=== PATIENT | female | born 1955 | race Caucasian/White ===

== ENCOUNTER → 2016-07-27 | Outpatient (CLI) | payer OTHER | LOC: FCPNEURO 23:12 | PROVIDERS: ATTEND Student in an Organized Health Care Education/Training Program | DX: G47.33 Obstructive sleep apnea (adult) (pediatric) (principal) ==

== ENCOUNTER → 2017-03-24 | Outpatient (CLI) | payer OTHER | LOC: CIMAGING 15:53 | PROVIDERS: ATTEND Family Medicine | DX: Z13.83 Encounter for screening for respiratory disorder NEC (principal) | CPT/HCPCS: 71020-PO ==

== ENCOUNTER 2017-04-01 09:52 | Inpatient (IN) | payer OTHER ==
[~2017-04-01 09:52] MED LIST: ROPIVACAINE 0.2% 80 MG, EPINEPHrine 0.2 MG, KETOROLAC TROMETHAMINE 30 MG in SYRINGE 0 ML IU ONE; TRANEXAMIC ACID 3,000 MG in NS 50 ML IRR ONE; TRANEXAMIC ACID 3,000 MG/50 ML BAG IRR ONE; VANCOMYCIN 1 GM VIAL ONE
[2017-04-01] MEDS ORDERED: ACETAMINOPHEN 325 MG TAB PO ONE (10:13)
[2017-04-01] MEDS ORDERED: ceFAZolin 2 GM/SWFI 2 GM/20 ML SYR IVP ONE (10:13)
[2017-04-01] MEDS ORDERED: DEXAMETHASONE 4 MG/ML VIAL IVP ONE (10:13)
[2017-04-01] MEDS ORDERED: FAMOTIDINE 20 MG TAB PO ONE (10:13)
[2017-04-01] MEDS ORDERED: LR 1,000 ML IV ONE (10:20)
[2017-04-01] MEDS ORDERED: LIDOCAINE 1% 2 ML INJ ID PRN (10:20)
--- NOTE | 2017-04-01 11:08 | PDHPUP ---
History & Physical Update H&P update statement: This history and physical update is based on an assessment of the patient which was completed after admission or registration (within 24 hours), but prior to the surgery/procedure. H&P update: H&P reviewed & patient examined, no change in patient's condition since H&P completed
[2017-04-01] MEDS ORDERED: MIDAZOLAM 2 MG/2 ML VIAL IVP ONE (11:33)
--- NOTE | 2017-04-01 11:37 | PDANEPAE ---
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 pcp monitors bp - Pulmonary History Hx COPD: No Hx Asthma/Reactive Airway Disease: No Hx Recent Upper Respiratory Infection: No Hx Oxygen in Use at Home: No Hx Sleep Apnea: No Sleep Apnea Screening Result - Last Documented: Positive Pulmonary History Comment: normal o2 sats range 93-94%. scottie positive- instructed pt to bring cpap to hospital - Neurologic History Hx Cerebrovascular Accident: No Hx Seizures: No Hx Dementia: No - Endocrine History Hx Diabetes: No Endocrine History Comment: hypothyroidism - Renal History Hx Renal Disorders: No - Liver History Hx Hepatic Disorders: No - Neurological & Psychiatric Hx Hx Neurological and Psychiatric Disorders: No Neurological / Psychiatric History Comment: hx of depression. anxiety - Cancer History Hx Cancer: No - Congenital Disorder History Hx Congenital Disorders: No - GI History Hx Gastrointestinal Disorders: No Gastrointestinal History Comment: hx of reflux - Other Health History Other Health History: NONE - Chronic Pain History Chronic Pain: Yes (left knee and right hip) - Surgical History Prior Surgeries: KNEE MENISCUS. FIBRODS REMOVED TONSILS ANE Review of Systems Review of systems is: negative Review of Systems: - Exercise capacity METS (RN): 3 METS ANE Patient History - Allergies Allergies/Adverse Reactions: Iodinated Contrast- Oral and IV Dye Allergy (Verified 04/01/17 10:22) iv tracer- caused flushing nickel Allergy (Verified 04/01/17 10:22) contact dermatitis - Home Medications Home Medications: Levothyroxine [Synthroid] 175 mcg PO DAILY 06/09/11 [Last Taken 04/01/17 05:00] Aspirin EC [Aspirin EC 81 mg (*)] 81 mg PO DAILY 03/06/17 [Last Taken 03/24/17] Herbals/Supplements -Info Only 1 ea PO DAILY 03/06/17 [Last Taken 03/18/17] Lisinopril [Zestril 10 mg (*)] 10 mg PO DAILY 03/06/17 [Last Taken 03/31/17 08: 00] Rosuvastatin Calcium [Crestor 5mg] 5 mg PO DAILY 03/06/17 [Last Taken 03/31/17 21:00] - NPO status NPO Since - Liquids (Date): 04/01/17 NPO Since - Liquids (Time): 09:00 NPO Since - Solids (Date): 03/31/17 NPO Since - Solids (Time): 18:30 - Smoking Hx Smoking Status: Former smoker - Alcohol Use Alcohol Use: Occasionally - Family Anes Hx Family Hx Anesthesia Complications: NONE ANE Labs/Vital Signs - Vital Signs Blood Pressure: 127/75 Heart Rate: 76 Respiratory Rate: 16 O2 Sat (%): 91 Height: 162.56 cm Weight: 111.13 kg ANE Physical Exam - Airway Neck exam: FROM Mallampati Score: Class 2 Mouth exam: normal dental/mouth exam - Pulmonary Pulmonary: no respiratory distress - Cardiovascular Cardiovascular: regular rate and rhythym - ASA Status ASA Status: II ANE Anesthesia Plan Anesthesia Plan: spinal
[2017-04-01] MEDS ORDERED: PROPOFOL/EMULSION 500 MG/50 ML BOTTLE IV ONE ×2 (12:09→12:46)
[2017-04-01] MEDS ORDERED: fentaNYL 100 MCG/2 ML INJ ONE ×2 (12:15→13:35)
[2017-04-01] MEDS ORDERED: PROMETHAZINE HCL 25 MG SUPPR PR PRN (13:38)
[2017-04-01] MEDS ORDERED: CYCLOBENZAPRINE 10 MG TAB PO PRN (13:38)
[2017-04-01] MEDS ORDERED: MAGNESIUM HYDROXIDE 30 ML UDCUP PO PRN (13:38)
[2017-04-01] MEDS ORDERED: DIPHENOXYLATE/ATROPINE LOMOTIL 1 TAB PO PRN (13:38)
[2017-04-01] MEDS ORDERED: PROMETHAZINE HCL 25 MG/ML INJ IVP PRN ×2 (13:38→13:54)
[2017-04-01] MEDS ORDERED: BISACODYL 10 MG SUPP PR PRN (13:38)
[2017-04-01] MEDS ORDERED: METOCLOPRAMIDE 10 MG/2 ML VIAL IVP PRN (13:38)
[2017-04-01] MEDS ORDERED: POLYETHYLENE GLYCOL 3350 17 GM PKT PO PRN (13:38)
[2017-04-01] MEDS ORDERED: LACTULOSE 20 GM/30 ML UDCUP PO PRN (13:38)
[2017-04-01] MEDS ORDERED: TEMAZEPAM 15 MG CAP PO PRN (13:38)
[2017-04-01] MEDS ORDERED: ONDANSETRON 4 MG/2 ML VIAL IVP PRN ×2 (13:38→13:54)
[2017-04-01] MEDS ORDERED: diphenhydrAMINE 25 MG CAP PO PRN (13:38)
[2017-04-01] MEDS ORDERED: ONDANSETRON DISINTEGRATING 4 MG TAB PO PRN (13:38)
[2017-04-01] MEDS ORDERED: fentaNYL 100 MCG/2 ML INJ IVP PRN (13:54)
[2017-04-01] MEDS ORDERED: NALOXONE HCL 0.4 MG/ML INJ IVP PRN (13:54)
--- NOTE | 2017-04-01 13:55 | POSTANESTH ---
Post Anesthetic Evaluation Cardiovascular Status: Normal, Stable Respiratory Status: Normal, Stable Level of Consciousness/Mental Status: Can Participate in Eval, Alert and Oriented Pain Control: Adequate, Prn Tx Ordered Nausea/Vomiting Control: Adequate, Prn Tx Ordered Complications Possibly Related to Anesthesia: None Noted
[2017-04-01] MEDS ORDERED: LR 1,000 ML IV SCH (14:00)
[2017-04-01] MEDS ORDERED: WARFARIN SODIUM 5 MG TAB PO SCH (16:00)
--- NOTE | 2017-04-01 18:03 | POSTOPPROG ---
Post Op Note Date of Operation: 04/01/17 Surgeon: Marvin Hale Afternoon Babysitter: Cori Hale PAc Anesthesiologist: Warm Anesthesia: Spinal Pre-op Diagnosis: L knee DJD Post-op Diagnosis: same Indication: Pain Procedure: L TKA Findings: DJD knee Inf/Abcess present in the surg proc area at time of surgery?: No EBL: 50-100
[2017-04-01] MEDS: ACETAMINOPHEN 325 MG TAB PO SCH ×2 (18:23→23:41)
[2017-04-01] MEDS: ceFAZolin 2 GM/SWFI 2 GM/20 ML SYR IVP SCH (18:23)
[2017-04-01] MEDS ORDERED: ROSUVASTATIN CALCIUM 10 MG TAB PO SCH (21:00)
[2017-04-01] MEDS: SENNOSIDES/DOCUSATE SODIUM TAB PO SCH (21:09)
[2017-04-01] MEDS: FAMOTIDINE 20 MG TAB PO SCH (21:10)
[2017-04-01] MEDS: oxyCODONE IR 5 MG TAB PO PRN ×2 (21:10→22:30)
[2017-04-01 23:48] VITALS: RESP 16
[2017-04-02] MEDS: ceFAZolin 2 GM/SWFI 2 GM/20 ML SYR IVP SCH (04:28)
[2017-04-02] MEDS: oxyCODONE IR 5 MG TAB PO PRN ×3 (05:31→12:00)
[2017-04-02] MEDS: ACETAMINOPHEN 325 MG TAB PO SCH ×2 (05:32→12:00)
--- NOTE | 2017-04-02 05:48 | GOP ---
[f rep st] OPERATIVE REPORT DATE OF OPERATION: 04/01/2017 SURGEON: Evelin Hale MD PRODUCTION SOLDERER: OK Mendoza. ANESTHESIA: Spinal. PREOPERATIVE DIAGNOSIS: Left knee osteoarthritis. POSTOPERATIVE DIAGNOSIS: Left knee osteoarthritis. PROCEDURE PERFORMED: Total knee arthroplasty. FINDINGS: INDICATIONS: This is a 61-year-old female with severe and progressive pain and deformity of the left knee unresponsive to conservative care. The risks and benefits of surgical intervention were explained in detail. DESCRIPTION OF PROCEDURE: The patient was brought to the operative room and placed on the table in the supine position. Spinal anesthesia was induced without difficulty. A pneumatic tourniquet was applied about the left proximal thigh, and the leg was prepped and draped in a sterile fashion. The leg jones was applied. After exsanguination by elevation the tourniquet was inflated to 300 mm of mercury. Incision was made anterior medial from the tibial tuberosity to a point 2 cm proximal to the superior pole of the patella. Medial parapatellar arthrotomy was carried out from the superior pole of the patella and posteriorly in line with the fibers of the Type II VMO. The medial collateral ligament was elevated and the infrapatellar fat pad was resected. The patella was everted and the articular surface was excised. A 35 mm patellar button was placed. The distal femoral guide hole was drilled and the 6 degree alignment manisha was placed. A 10 mm distal femoral cut was made without difficulty. Attention was turned to the tibia and a standard 9 mm cut based on the lateral condyle was performed. The tibial articular surface was excised without difficulty. Attention was turned back to the femur and a size 5 femoral cutting block was positioned. Anterior, posterior, and chamfer cuts were made, followed by the intercondylar box cut. The knee was extended and the remnants of the medial and lateral meniscus were excised. The posterior capsule was injected with ropivacaine, epinephrine and Toradol. A size 5 Journey tibial tray was positioned. Trial reduction was then carried out. There was excellent range of motion, alignment, and stability using the 10 mm polyethylene. All trials were then removed. The joint was thoroughly irrigated and carefully dried. Two packages of cement and 2 grams of vancomycin were mixed in the vacuum mixer and placed on the fixation surfaces of all surfaces of the components. The components were implanted and all excess cement was thoroughly removed. The permanent 10 mm polyethylene was placed without difficulty. The tourniquet was deflated and all bleeders were coagulated. The wound was thoroughly irrigated and closed using interrupted sutures of 2-0 Vicryl for the joint capsule. The subcu was closed with 3-0 Vicryl and the skin with 4-0 Monocryl. Dermabond and Steri-Strips were applied followed by a compressive dressing. The patient was then moved from the operating room to the recovery room in good condition, having tolerated the procedure well. /[id number]/MODL MTDD
[2017-04-02 06:46] LABS: HEMATOCRIT 40.9 % (38.0-47.0); HEMOGLOBIN 13.6 g/dL (12.6-16.3)
[2017-04-02 06:58] LABS: INR 1.13 (0.83-1.16); PROTIME(PATIENT) 14.7 SEC (12.0-15.0)
[2017-04-02 07:52] VITALS: BP 122/66; PULSE 73; TEMP 97.8; O2SAT 95
[2017-04-02] MEDS ORDERED: NON-FORMULARY NEW DRUG (Rosuvastatin Calcium [Crestor 5mg] 5 MG) PO SCH (09:00)
[2017-04-02] MEDS ORDERED: LISINOPRIL 10 MG TAB PO SCH (09:00)
[2017-04-02] MEDS ORDERED: ENOXAPARIN 40 MG/0.4 ML SYR SC SCH (09:00)
[2017-04-02] MEDS ORDERED: LEVOTHYROXINE 175 MCG TAB PO SCH (09:00)
[2017-04-02] MEDS: SENNOSIDES/DOCUSATE SODIUM TAB PO SCH (09:17)
[2017-04-02] MEDS: FAMOTIDINE 20 MG TAB PO SCH (09:17)
--- NOTE | 2017-04-02 10:46 | SOAPPROG ---
SOAP Progress Note Assessment/Plan: Assessment: Patient is doing well POD 1 s/p L TKA Pain management: pain is well controlled on oral pain meds. VTE ppx: recommend coumadin and lovenox, INR 1.13, cont DEV and SCDs D/c planning: d/c to home today pending release from PT Plan: 04/02/17 10:45 04/02/17 10:46 Subjective: Lianet is doing well today, denies SOB, chest pain and N/V. Objective: Vital Signs Temp Pulse Resp BP Pulse Ox 36.6 C 73 16 122/66 H 95 04/02/17 07:52 04/02/17 07:52 04/02/17 07:52 04/02/17 09:16 04/02/17 07:52 Laboratory Results 04/02/17 05:50 04/01/17 04/02/17 04/03/17 05:59 05:59 05:59 Intake Total 2490 300 Output Total 1951 400 Balance 539 -100 PT 14.7 SEC (12.0-15.0) 04/02/17 05:50 INR 1.13 (0.83-1.16) 04/02/17 05:50 LLE: incision dressing is clean and dry, NVI, +pf/df ICD10 Worksheet Patient Problems: Problems Problem Status Onset Primary localized osteoarthritis of left knee Acute
--- NOTE | 2017-04-02 16:21 | ASDISCHSUM ---
Discharge Information Plan Status:Home with No Needs Medically Cleared to Leave: Discharge Date:04/02/2017 02:52 PM CM D/C Disposition:Home, Routine, Self-Care ADT D/C Disposition:Home, Routine, Self-Care Projected Discharge Date:04/02/2017 02:52 PM Transportation at D/C: Discharge Delay Reason: Follow-Up Date:04/02/2017 02:52 PM Discharge Slot: Final Diagnosis: Placement Information Patient Contact Information Contact Name:CECIL Relationship: Address:[address] City:[place] Alternate Phone: [facility]/Zip Code:[place] [address] Email: Financial Information Financial Class:HMO and PPO Plans Primary Plan Desc:H[employer] [place] [employer] Primary Plan Number:[id number] Secondary Plan Desc: Secondary Plan Number: Assessment Information CM Public Policy Coordinator Assessment CJR Did you go to joint Answers: Yes class? CM Note CM Note Notes: Lianet is planning to discharge home with the support of her and friends. She seen the online video, but I provided her with the information for attending the Joint Class on March 25. Lianet did attend this meeting and she let me know after that it provided her with good information. Lianet has set up outpatient therapy for post-surgery rehabilitation. Date Signed: 03/27/2017 09:12 AM Electronically Signed By:Danette Valverde Intervention Information
--- NOTE | 2017-04-03 03:09 | GDS ---
[f rep st] DISCHARGE SUMMARY ADMISSION DIAGNOSIS: Left knee osteoarthritis. DISCHARGE DIAGNOSIS: Left knee osteoarthritis. PROCEDURE: Left total knee arthroplasty. VTE PROPHYLAXIS: Coumadin and Lovenox recommended. BRIEF DESCRIPTION OF HOSPITAL STAY: Patient was admitted for an elective joint arthroplasty. The pa tient tolerated the procedure well and has passed physical therapy. The patient was given appropriat e antibiotic prophylaxis and venous thromboembolism prophylaxis. The patient's pain was well control led on oral pain medication, patient was holding down food, and had urinated. Decision was made to d ischarge the patient. The patient was given post-operative prescriptions pre-operatively. PLAN: Please follow up as scheduled with Dr. Hale's office April 23 at 10:30 a.m. /[id number]/MODL
== END 2017-04-02 14:52 | disposition home or self-care (01) | DRG 470 ==
LOC: F3N 09:52
PROVIDERS: ADMIT Orthopaedic Surgery; ATTEND Orthopaedic Surgery
PROC: 0SRD0J9 Replacement of Left Knee Joint with Synthetic Substitute, Cemented, Open Approach (ICD-10-PCS; principal; 2017-04-01 12:15)
DX: M17.12 Unilateral primary osteoarthritis, left knee (principal); I25.10 Atherosclerotic heart disease of native coronary artery without angina pectoris; E03.9 Hypothyroidism, unspecified; E78.00 Pure hypercholesterolemia, unspecified
CPT/HCPCS: 97116-GP; 97161-GP; 97165-GO; 97535-GO; C1713; J0171; J0690; J1100; J1650; J1885; J2250; J2704; J2795; J3010; J3370

== ENCOUNTER → 2017-12-30 | Outpatient (CLI) | payer OTHER | LOC: CIMAGING 15:50 | PROVIDERS: ATTEND Family Medicine | DX: M79.604 Pain in right leg (principal) | CPT/HCPCS: 93971-PO ==

== ENCOUNTER → 2018-01-05 | Outpatient (CLI) | payer OTHER | LOC: FIMAGING 18:36 | PROVIDERS: ATTEND Orthopaedic Surgery | DX: S83.271A Complex tear of lateral meniscus, current injury, right knee, initial encounter (principal); S83.241A Other tear of medial meniscus, current injury, right knee, initial encounter; M24.10 Other articular cartilage disorders, unspecified site; M76.31 Iliotibial band syndrome, right leg; M25.461 Effusion, right knee ==

== ENCOUNTER 2018-04-02 11:50 | Observation (INO) | payer OTHER ==
[~2018-04-02 11:50] MED LIST changes: +TRANEXAMIC ACID 3,000 MG in NS (SYRINGE) 50 ML IRR ONE; -TRANEXAMIC ACID 3,000 MG in NS 50 ML IRR ONE; -VANCOMYCIN 1 GM VIAL ONE
[2018-04-02] MEDS ORDERED: ROPIVACAINE HCL 150 MG/30 ML INJ ONE (11:58)
[2018-04-02] MEDS ORDERED: BUPIVACAINE/DEXTROSE 7.5MG/ML 2 ML SPINAL AMP SP ONE (11:58)
[2018-04-02] MEDS ORDERED: PROPOFOL 200 MG/20 ML VIAL ONE (11:58)
[2018-04-02] MEDS ORDERED: LIDOCAINE 2% 5 ML SDV ONE (11:58)
[2018-04-02] MEDS ORDERED: PROPOFOL/EMULSION 500 MG/50 ML BOTTLE IV ONE ×3 (11:58→15:49)
[2018-04-02] MEDS ORDERED: ACETAMINOPHEN 325 MG TAB PO ONE (12:15)
[2018-04-02] MEDS ORDERED: ceFAZolin 2 GM/DEXTROSE 100 ML IV ONE (12:15)
[2018-04-02] MEDS ORDERED: DEXAMETHASONE 4 MG/ML VIAL IVP ONE (12:15)
[2018-04-02] MEDS ORDERED: FAMOTIDINE 20 MG TAB PO ONE (12:15)
[2018-04-02] MEDS ORDERED: LR 1,000 ML IV ONE (12:16)
[2018-04-02] MEDS ORDERED: HYDROmorphONE/DILAUDID 2 MG/ML INJ IVP PRN (13:20)
[2018-04-02] MEDS ORDERED: MIDAZOLAM 2 MG/2 ML VIAL IVP ONE (13:20)
[2018-04-02] MEDS ORDERED: NALOXONE HCL 0.4 MG/ML INJ IVP PRN (13:20)
[2018-04-02] MEDS ORDERED: fentaNYL 100 MCG/2 ML INJ IVP PRN (13:20)
[2018-04-02] MEDS ORDERED: LR 500 ML IV PRN (13:20)
[2018-04-02] MEDS ORDERED: ONDANSETRON 4 MG/2 ML VIAL IVP PRN ×2 (13:20→14:54)
[2018-04-02] MEDS ORDERED: VANCOMYCIN 1 GM VIAL ONE (13:20)
[2018-04-02] MEDS ORDERED: PHENYLEPHRINE HCL 100 MCG/ML SYR IVP PRN (13:20)
[2018-04-02] MEDS ORDERED: METOCLOPRAMIDE 10 MG/2 ML VIAL IVP PRN ×2 (13:20→14:54)
[2018-04-02] MEDS ORDERED: oxyCODONE IR 5 MG TAB PO PRN (13:20)
--- NOTE | 2018-04-02 14:05 | PDANEPAE ---
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 pcp monitors bp - Pulmonary History Hx COPD: No Hx Asthma/Reactive Airway Disease: No Hx Recent Upper Respiratory Infection: No Hx Sleep Apnea: Yes Sleep Apnea Screening Result - Last Documented: Positive Pulmonary History Comment: scottie positive- instructed pt to bring cpap to hospital. USES ORAL MOUTH GUARD TO BRING DOS - Neurologic History Hx Cerebrovascular Accident: No Hx Seizures: No Hx Dementia: No - Endocrine History Hx Diabetes: No Endocrine History Comment: hypothyroidism - Renal History Hx Renal Disorders: No - Liver History Hx Hepatic Disorders: No - Neurological & Psychiatric Hx Hx Neurological and Psychiatric Disorders: No Neurological / Psychiatric History Comment: hx of depression. anxiety - Cancer History Hx Cancer: No - Congenital Disorder History Hx Congenital Disorders: No - GI History Hx Gastrointestinal Disorders: No Gastrointestinal History Comment: hx of reflux - Other Health History Other Health History: OSTEOARTHRITIS - Chronic Pain History Chronic Pain: Yes (KNEE) - Surgical History Prior Surgeries: LT TOTAL KNEE 04/01/17. KNEE MENISCUS. FIBROIDS REMOVED. TONSILS ANE Review of Systems Review of Systems: - Exercise capacity METS (RN): 2 METS ANE Patient History - Allergies Allergies/Adverse Reactions: Iodinated Contrast- Oral and IV Dye Allergy (Verified 04/01/17 10:22) iv tracer- caused flushing nickel Allergy (Verified 04/01/17 10:22) contact dermatitis - Home Medications Home Medications: Levothyroxine [Synthroid 175 mcg (*)] 175 mcg PO DAILY 06/09/11 [Last Taken 07:30] Herbals/Supplements -Info Only 1 ea PO DAILY 03/06/17 [Last Taken 2 Weeks Ago ~ 03/19/18] Lisinopril [Zestril 10 mg (*)] 10 mg PO DAILY 03/06/17 [Last Taken 04/02/18 07: 30] Rosuvastatin Calcium [Crestor 5mg] 5 mg PO HS 03/06/17 [Last Taken 04/01/18] Aspirin [Aspirin 81mg (*)] 81 mg PO DAILY 03/08/18 [Last Taken 1 Week Ago ~03/26] C/E/Zn/Cu/OM3/DHA/EPA/LUT/ZEAX [Preservision Areds 2 Softgel] 2 each PO DAILY [Last Taken 2 Weeks Ago ~03/19/18] Cholecalciferol Vit D3 [Vitamin D3 2000 units tab (OTC)] 10,000 units PO DAILY 03/08/18 [Last Taken 2 Weeks Ago ~03/19/18] - NPO status NPO Since - Liquids (Date): 04/02/18 NPO Since - Liquids (Time): 09:00 NPO Since - Solids (Date): 04/01/18 NPO Since - Solids (Time): 18:30 - Smoking Hx Smoking Status: Former smoker - Family Anes Hx Family Hx Anesthesia Complications: NONE ANE Labs/Vital Signs - Vital Signs Height: 167.64 cm Weight: 113.398 kg ANE Physical Exam - Airway Neck exam: FROM Mallampati Score: Class 1 Mouth exam: normal dental/mouth exam - Pulmonary Pulmonary: no respiratory distress, no rales or rhonchi, clear to auscultation - Cardiovascular Cardiovascular: regular rate and rhythym, no murmur, rub, or gallop - ASA Status ASA Status: III ANE Anesthesia Plan Anesthesia Plan: spinal
[2018-04-02] MEDS ORDERED: diphenhydrAMINE 25 MG CAP PO PRN (14:54)
[2018-04-02] MEDS ORDERED: PROMETHAZINE HCL 25 MG SUPPR PR PRN (14:54)
[2018-04-02] MEDS ORDERED: DIPHENOXYLATE/ATROPINE LOMOTIL 1 TAB PO PRN (14:54)
[2018-04-02] MEDS ORDERED: ONDANSETRON DISINTEGRATING 4 MG TAB PO PRN (14:54)
[2018-04-02] MEDS ORDERED: LACTULOSE 20 GM/30 ML UDCUP PO PRN (14:54)
[2018-04-02] MEDS ORDERED: MAGNESIUM HYDROXIDE 30 ML UDCUP PO PRN (14:54)
[2018-04-02] MEDS ORDERED: POLYETHYLENE GLYCOL 3350 17 GM PKT PO PRN (14:54)
[2018-04-02] MEDS ORDERED: CYCLOBENZAPRINE 10 MG TAB PO PRN (14:54)
[2018-04-02] MEDS ORDERED: TEMAZEPAM 15 MG CAP PO PRN (14:54)
[2018-04-02] MEDS ORDERED: PROMETHAZINE HCL 25 MG/ML INJ IVP PRN (14:54)
[2018-04-02] MEDS ORDERED: BISACODYL 10 MG SUPP PR PRN (14:54)
[2018-04-02] MEDS ORDERED: LR 1,000 ML IV SCH (15:00)
[2018-04-02] MEDS ORDERED: fentaNYL 100 MCG/2 ML INJ ONE ×2 (15:18→16:36)
--- NOTE | 2018-04-02 16:17 | POSTOPPROG ---
Post Op Note Date of Operation: 04/02/18 Surgeon: Marvin Hale Bill Of Lading Clerk: Cori Hale PAc Anesthesiologist: [place] Anesthesia: Spinal Pre-op Diagnosis: R knee DJD Post-op Diagnosis: same Indication: pain Procedure: R TKA Findings: djd knee Inf/Abcess present in the surg proc area at time of surgery?: No EBL: 50-100
[2018-04-02] MEDS ORDERED: oxyCODONE IR 5 MG TAB ONE (16:46)
[2018-04-02] MEDS ORDERED: WARFARIN SODIUM 5 MG TAB PO SCH (17:15)
[2018-04-02] MEDS: ACETAMINOPHEN 325 MG TAB PO SCH (17:36)
[2018-04-02] MEDS: SENNOSIDES/DOCUSATE SODIUM TAB PO SCH (20:34)
[2018-04-02] MEDS: FAMOTIDINE 20 MG TAB PO SCH (20:34)
[2018-04-02] MEDS: oxyCODONE IR 5 MG TAB PO PRN (20:37)
[2018-04-02] MEDS ORDERED: ROSUVASTATIN CALCIUM 10 MG TAB PO SCH (21:00)
[2018-04-02] MEDS: ceFAZolin 2 GM/DEXTROSE 100 ML IV SCH (22:13)
[2018-04-03 05:23] LABS: INR 1.2 (0.83-1.16); PROTIME(PATIENT) 15.4 SEC (12.0-15.0)
[2018-04-03] MEDS: ACETAMINOPHEN 325 MG TAB PO SCH ×3 (05:35→11:36)
[2018-04-03] MEDS: ceFAZolin 2 GM/DEXTROSE 100 ML IV SCH (05:39)
[2018-04-03 07:02] VITALS: BP 124/67
[2018-04-03] MEDS ORDERED: LISINOPRIL 10 MG TAB PO SCH (09:00)
[2018-04-03] MEDS ORDERED: ENOXAPARIN 40 MG/0.4 ML SYR SC SCH (09:00)
[2018-04-03] MEDS ORDERED: LEVOTHYROXINE 175 MCG TAB PO SCH (09:00)
[2018-04-03] MEDS: FAMOTIDINE 20 MG TAB PO SCH (09:06)
[2018-04-03] MEDS: SENNOSIDES/DOCUSATE SODIUM TAB PO SCH (09:07)
[2018-04-03] MEDS: oxyCODONE IR 5 MG TAB PO PRN ×2 (09:11→11:37)
--- NOTE | 2018-04-03 12:35 | ASDISCHSUM ---
Discharge Information Plan Status:Home with No Needs Medically Cleared to Leave:04/02/2018 Discharge Date:04/02/2018 CM D/C Disposition:Home, Routine, Self-Care ADT D/C Disposition:Home, Routine, Self-Care Projected Discharge Date:04/02/2018 Transportation at D/C:Family Discharge Delay Reason: Follow-Up Date:04/02/2018 Discharge Slot:1 - 8:01 am - 12:00 noon Final Diagnosis:Right knee arthroplasty Placement Information Patient Contact Information Contact Name:CECIL Relationship: Address:[address] City:[place] Alternate Phone: State/Zip Code:[place] [address] Email: Financial Information Financial Class:[facility] Primary Plan Desc:[employer] [place] [employer] Primary Plan Number:[id number] Secondary Plan Desc: Secondary Plan Number: Assessment Information LACE LACE Length of stay for Answers: Less than 1 day current admission Acuity / Level of Answers: No Care: Did the patient have an inpatient admission? Comorbidities - select Answers: Coronary Artery Disease all that apply Other Notes: HTN, hypercholesteremia , o bstructive sleep apnea # of Emergency department Answers: 0 visits in the last 6 months Score: 3 Date Signed: 04/03/2018 11:13 AM Electronically Signed By:Josselin Mistry RN [facility] Progress Note CM Note CM Note Notes: Reviewed chart. Pt admitted for a planned right knee arthroplasty. Pt to discharge home independently with family support and no identified needs. No RADHA/MARIA TERESA signed, not applicable. Pt to follow up as directed. CM available for any further issues or concerns. Discharge Plan: Home independently with family support Date Signed: 04/03/2018 11:18 AM Electronically Signed By:Josselin Mistry RN Intervention Information
--- NOTE | 2018-04-03 12:40 | ASMTCMCOM ---
CM Note CM Note Notes: Reviewed chart. Pt admitted for a planned right knee arthroplasty. Pt to discharge home independently with family support and no identified needs. No IM/MOREL signed, not applicable. Pt to follow up as directed. CM available for any further issues or concerns. Discharge Plan: Home independently with family support Date Signed: 04/03/2018 11:18 AM Electronically Signed By:Josselin Mistry RN
--- NOTE | 2018-04-03 12:40 | ASMTLACE ---
LACE Length of stay for Answers: Less than 1 day current admission Acuity / Level of Answers: No Care: Did the patient have an inpatient admission? Comorbidities - select Answers: Coronary Artery Disease all that apply Other Notes: HTN, hypercholesteremia , o bstructive sleep apnea # of Emergency department Answers: 0 visits in the last 6 months Score: 3 Date Signed: 04/03/2018 11:13 AM Electronically Signed By:Josselin Mistry RN
--- NOTE | 2018-04-03 21:34 | SOAPPROG ---
SOAP Progress Note Assessment/Plan: Assessment: Lianet is doing well POD 1 s/p R TKA pain is well controlled on oral pain meds VTE ppx: recommend coumadin and lovenox. INR 1.2 today. D/c planning: patient has done much better than anticipated. Patient may discharge to home once released from PT. Plan: 04/03/18 21:32 04/03/18 21:33 Subjective: patient is doing well today, denies SOB, chest pain and N/V Objective: Vital Signs Temp Pulse Resp BP Pulse Ox 36.5 C 64 15 124/67 H 99 04/03/18 06:57 04/03/18 06:57 04/03/18 06:57 04/03/18 06:57 04/03/18 06:57 Laboratory Results 04/03/18 04:32 04/02/18 04/03/18 04/04/18 05:59 05:59 05:59 Intake Total 2440 Output Total 1930 Balance 510 PT 15.4 SEC (12.0-15.0) H 04/03/18 04:32 INR 1.20 (0.83-1.16) H 04/03/18 04:32 RLE: incision dressing is clean and dry, NVI, +pf/df ICD10 Worksheet Patient Problems: Problems Problem Status Onset Primary localized osteoarthritis of left knee Acute Primary localized osteoarthritis of right knee Acute
--- NOTE | 2018-04-05 02:25 | GOP ---
DATE OF OPERATION: 04/02/2018 SURGEON: Evelin Hale MD INSPECTOR FILTER TIP: Cori Hale PA-C. ANESTHESIA: Spinal. PREOPERATIVE DIAGNOSIS: Right knee osteoarthritis. POSTOPERATIVE DIAGNOSIS: Right knee osteoarthritis. PROCEDURE PERFORMED: Total knee arthroplasty. FINDINGS: ESTIMATED BLOOD LOSS: 30 cc. INDICATIONS: This is a 62-year-old female with severe and progressive pain and deformity of the righ t knee unresponsive to conservative care. Risks and benefits of the surgical intervention were expla ined in detail. DESCRIPTION OF PROCEDURE: The patient was brought to the operative room and placed on the table in t he supine position. Spinal anesthesia was induced without difficulty. A pneumatic tourniquet was ap plied about the right proximal thigh, and the leg was prepped and draped in a sterile fashion. The l eg jones was applied. After exsanguination by elevation the tourniquet was inflated to 275 mm of me rcury. Incision was made anterior medial from the tibial tuberosity to a point 2 cm proximal to the superior pole of the patella. Medial parapatellar arthrotomy was carried out from the superior pole of the p atella and posteriorly in line with the fibers of the Type II VMO. The medial collateral ligament wa s elevated and the infrapatellar fat pad was resected. Severe medial and patellofemoral osteoarthrit is. The patella was everted and the articular surface was excised. A 32 mm patellar button was placed. T he distal femoral guide hole was drilled and the 6 degree alignment manisha was placed. A 10 mm distal f emoral cut was made without difficulty. Attention was turned to the tibia and a standard 9 mm cut based on the lateral tibial condyle was per formed. The tibial articular surface was excised without difficulty. Attention was turned back to the femur and a size 5 Journey II femoral cutting block was positioned. Anterior, posterior, and chamfer cuts were made, followed by the intercondylar box cut. The knee was extended and the remnants of the medial and lateral meniscus were excised. The posterio r capsule was injected with ropivacaine, epinephrine and Toradol. A size 4 tibial tray was positione d. Trial reduction was then carried out. There was excellent range of motion, alignment, and stabil ity using the 10 mm polyethylene. All trials were then removed. The joint was thoroughly irrigated and carefully dried. Two packages of cement and 2 grams of vancomycin were mixed in the vacuum mixer and placed on the fixation surface s of all surfaces of the components. The components were implanted and all excess cement was thoroug hly removed. The permanent 10 mm polyethylene was placed without difficulty. The tourniquet was deflated and all bleeders were coagulated. The wound was thoroughly irrigated and closed using interrupted sutures of 2-0 Vicryl for the joint capsule. The subcu was closed with 3-0 Vicryl and the skin with 4-0 Monocryl. Dermabond and Steri-Strips were applied followed by a compre ssive dressing. The patient was then moved from the operating room to the recovery room in good cond ition, having tolerated the procedure well. /[id number]/MODL
--- NOTE | 2018-04-08 16:12 | GDS ---
ADMISSION DIAGNOSIS: Right knee osteoarthritis. DISCHARGE DIAGNOSIS: Right knee osteoarthritis. PROCEDURE: Right total knee arthroplasty. VTE PROPHYLAXIS: Recommend Coumadin and Lovenox. BRIEF DESCRIPTION OF HOSPITAL STAY: Patient was admitted for an elective joint arthroplasty. The pa crispin tolerated the procedure well and has passed physical therapy. The patient was given appropriat e antibiotic prophylaxis and venous thromboembolism prophylaxis. The patient's pain was well control led on oral pain medication, patient was holding down food, and had urinated. Decision was made to d ischarge the patient. The patient was given post-operative prescriptions pre-operatively. PLAN: Follow up in [address] Hale's office. /[id number]/MODL
== END 2018-04-03 12:37 | disposition home or self-care (01) ==
LOC: INTOOBSV 11:50 → F3N 11:50
PROVIDERS: ADMIT Orthopaedic Surgery; ATTEND Orthopaedic Surgery
PROC: 0SRC0J9 Replacement of Right Knee Joint with Synthetic Substitute, Cemented, Open Approach (ICD-10-PCS; principal; 2018-04-02 14:00)
DX: M17.11 Unilateral primary osteoarthritis, right knee (principal); M16.10 Unilateral primary osteoarthritis, unspecified hip; I25.10 Atherosclerotic heart disease of native coronary artery without angina pectoris; I10 Essential (primary) hypertension; E03.9 Hypothyroidism, unspecified; E78.00 Pure hypercholesterolemia, unspecified; E66.01 Morbid (severe) obesity due to excess calories; G47.33 Obstructive sleep apnea (adult) (pediatric)
CPT/HCPCS: 27447; 73560; 97116; 97161; G0378; C1713; J0171; J0690; J1100; J1650; J1885; J2250; J2704; J2795; J3010; J3370